=== PATIENT | female | born 1960 | race Caucasian/White ===

== ENCOUNTER 2019-01-10 11:25 | Observation (INO) ==
--- NOTE | 2019-01-10 11:53 | Emergency Department Note ---
Disposition Clinical Impression: Low back pain, Hip pain, History of fall Disposition: Home, Self-Care Condition: Good Time of Disposition: 12:24 General Adult HPI - General Stated complaint: fall Time Seen by Provider: 01/10/19 11:35 Source: patient, family Mode of arrival: EMS Limitations: no limitations Nursing Notes Reviewed: Yes Vital Signs Reviewed: Yes - History of Present Illness HPI Narrative: Patient has been having increasing difficulty moving her feet and when she was walking today she fell tripping over her feet. She complains of low back pain and pain in her left hip. She denies any upper extremity injury, head, neck or chest pain. Patient has history of metastatic small cell cancer and is currently on hospice Onset (ago): Just [employer] Location: back, left, lower extremity Radiation: non-radiation Pain Severity: mild Quality: aching Consistency: constant Improves with: nothing Worsens with: nothing Associated symptoms: Reports: denies other symptoms - Related Data Home Medications Medication Instructions Recorded Confirmed LevETIRAcetam [Keppra] 1,000 mg PO BID 10/10/17 01/10/19 FentaNYL PATCH [Duragesic] 75 mcg TD Q72H 12/30/18 01/10/19 Sennosides/Docusate Sodium 1 each PO BID 12/30/18 01/10/19 [Senna-S Tablet] Polyethylene Glycol 3350 [MiraLAX] 17 gm PO DAILY PRN 01/10/19 01/10/19 Previous Rx's Medication Instructions Recorded Magic Mouthwash [Magic Mouthwash 10 ml PO QID PRN #240 ml 06/22/16 BLM] Magnesium Oxide [Magnesium] 1 tab PO BID #60 tablet 12/12/17 Docusate Sodium [Colace] 1 tab PO BID #60 capsule 12/20/17 Ondansetron HCl [Zofran] 4 mg PO Q4H PRN #30 tablet 08/01/18 Prochlorperazine Maleate 10 mg PO Q6H PRN #30 tablet 08/01/18 [Compazine] Omeprazole 20 mg PO DAILY #30 tablet. 08/29/18 Loperamide [Imodium] 1 tab PO Q6H PRN #30 capsule 10/01/18 Docusate [Colace] 100 mg PO BID #60 capsule 10/29/18 Levothyroxine [Synthroid] 1 tab PO DAILY #30 tablet 11/13/18 Cyanocobalamin (Vitamin B-12) 1,000 mcg SL DAILY #30 tab 11/14/18 [Vitamin B12] Folic Acid 1 mg PO DAILY #30 tablet 11/14/18 Oxycodone HCl 1 tab PO Q6H PRN 30 Days #120 12/05/18 tablet Allergies Allergy/AdvReac Type Severity Reaction Status Date / Time morphine AdvReac Nausea Verified 01/10/19 11:36 All systems ED: reviewed and negative except as stated. Review of Systems: As Per HPI Constitutional: Denies: fever, chills, weakness, weight change Eyes: Denies: eye pain, eye discharge, vision change ENT ED: Denies: ear pain, throat pain, dental pain, hearing loss, epistaxis, congestion, dysphagia Cardiovascular: Denies: chest pain, palpitations, dyspnea on exertion, edema, syncope Respiratory: Denies: cough, dyspnea, wheezes, hemoptysis, stridor Gastrointestinal: Denies: abdominal pain, nausea, vomiting, diarrhea, constipation, hematemesis, melena, hematochezia Genitourinary: Denies: dysuria, frequency, hematuria, discharge Musculoskeletal: Reports: as per HPI (Left hip), back pain Integumentary: Denies: rash, abrasion, lesions Neurological: Denies: headache, weakness, numbness, paresthesias, confusion, abnormal gait, vertigo Psychiatric: Denies: anxiety, depression, suicidal thoughts, homicidal thoughts, auditory hallucinations, visual hallucinations Endocrine: Denies: fatigue Hematological/Lymphatic: Denies: easy bleeding, easy bruising Allergic/Immunologic: Denies: facial swelling, urticaria Past Medical History - Past Medical History Attestation: Yes The following information was validated with the patient. Source: patient, nursing notes reviewed Medical history: Reports: cancer, diabetes Surgical history: Reports: other Psychiatric history: Reports: no psych history - Social History Smoking Status: Current every day smoker Smokeless Tobacco Status: No Alcohol use: Reports: none Drug use: Reports: none Physical Exam - General Limitations: no limitations General appearance: alert, in no apparent distress - Head Head exam: atraumatic, normocephalic, normal inspection - Eye Eye exam: Present: normal appearance, PERRL, EOMI - ENT ENT exam: normal exam, normal oropharynx, mucous membranes moist - Neck Neck exam: Present: normal inspection, full ROM, trachea midline - Chest Chest inspection: Present: normal inspection, symmetric chest wall rise - Respiratory Respiratory exam: Present: normal lung sounds bilaterally - Cardiovascular Cardiovascular exam: Present: regular rate, normal rhythm, normal heart sounds - Abdominal Exam Abdominal exam: Present: soft, Non-Tender. Absent: tenderness, distention, guarding, rebound, rigidity - Extremities Exam Extremities exam: Present: tenderness (Mild left lateral hip tenderness with palpation. Pelvis appears stable. There is also low back tenderness in the midline with palpation near L4-L5. There is no palpable abnormalities in this region) - Back Exam Back exam: Present: normal inspection, full ROM. Absent: tenderness - Neurological Exam Neurological exam: Present: alert, oriented X3 - Psychiatric Psychiatric exam: Present: normal affect, normal mood - Skin Skin exam: Present: warm, dry, intact, normal color Course Vital Signs Temperature 98.9 F 01/10/19 11:49 Pulse Rate 103 01/10/19 11:49 Respiratory Rate 20 01/10/19 11:49 Blood Pressure 115/77 01/10/19 11:49 O2 Sat by Pulse Oximetry 95 01/10/19 11:49 Temperature 98.4 F 01/10/19 18:13 Pulse Rate 102 01/10/19 18:13 Respiratory Rate 16 01/10/19 18:13 Blood Pressure 111/72 01/10/19 18:13 O2 Sat by Pulse Oximetry 95 01/10/19 18:13 Oxygen Delivery Oxygen Delivery Room Air Medical Decision Making - MDM Narrative Medical decision making narrative: I reviewed the patient's medication list I advised the patient family of the x-ray findings at the were negative. And the patient started to cry stating that she cannot deal with this anymore. She came in get up at home. They reside of the fact that this point that she is more work than the family can do at home and needs to be placed somewhere or have additional help come in. I called the hospice nurse on the hot line and she has been looking into her problem. The software product manager called back in so that they will work on placing her but that she will need to be admitted here in the hospital in the meantime if she is unable to care for herself at home I discussed case with Dr. Tapia she is not sure how to that the patient or if she should be transferred to [facility] and placed in the palliative care unit care unit. She is waiting to make that decision until she talks the hospice nurse directly. - Radiology Data Radiology results reviewed: Yes I reviewed the patient's radiology results.
[2019-01-10] MEDS ORDERED: *HR* OxyCODONE/APAP 5/325 TABLET PO ONE (15:34)
[2019-01-10] MEDS ORDERED: *HR* OxyCODONE Immed Rel 15 MG TABLET PO PRN (16:49)
[2019-01-10] MEDS ORDERED: Ondansetron ODT 4 MG TAB.RAPDIS PO PRN (16:49)
[2019-01-10] MEDS ORDERED: Magic Mouthwash 10 ML UD Cup PO PRN ×2 (16:49→19:26)
[2019-01-10] MEDS ORDERED: Naloxone 0.4 MG/ML INJ IVP PRN (19:26)
[2019-01-10] MEDS ORDERED: *HR* Dextrose 50 % in Water (Syg) 50 ML SYRINGE IVP PRN (19:51)
[2019-01-10] MEDS ORDERED: Dextrose 4 GM Chewable Tablets PO PRN ×2 (19:51)
[2019-01-10] MEDS ORDERED: Dextrose Gel 15 GM/37.5 ML TUBE PO PRN ×2 (19:51)
[2019-01-10] MEDS ORDERED: D5% in Water 1,000 ML IVC PRN (19:51)
[2019-01-10] MEDS ORDERED: Magnesium Oxide 400 MG TABLET PO SCH (21:00)
[2019-01-10] MEDS ORDERED: Sennosides/Docusate Sodium TABLET PO SCH (21:00)
[2019-01-10] MEDS ORDERED: levETIRAcetam 250 MG TABLET PO SCH (21:00)
[2019-01-10] MEDS: Sennosides/Docusate Sodium TABLET PO SCH (21:11)
[2019-01-10] MEDS: Magnesium Oxide 400 MG TABLET PO SCH (21:11)
[2019-01-10] MEDS: levETIRAcetam 250 MG TABLET PO SCH (21:12)
[2019-01-10] MEDS: Insulin LISPRO 300 UNITS/3 ML VIAL SQ SCH (21:12)
[2019-01-10] MEDS: Ondansetron ODT 4 MG TAB.RAPDIS PO PRN (23:22)
[2019-01-11] MEDS: *HR* OxyCODONE Immed Rel 15 MG TABLET PO PRN ×4 (04:14→22:58)
[2019-01-11] MEDS: Sennosides/Docusate Sodium TABLET PO SCH ×2 (07:55→19:27)
[2019-01-11] MEDS: Insulin LISPRO 300 UNITS/3 ML VIAL SQ SCH ×4 (07:55→20:09)
[2019-01-11] MEDS: Magnesium Oxide 400 MG TABLET PO SCH ×2 (08:03→20:08)
[2019-01-11] MEDS: levETIRAcetam 250 MG TABLET PO SCH ×2 (08:03→20:08)
[2019-01-11] MEDS: Folic Acid 1 MG TABLET PO SCH (08:03)
[2019-01-11] MEDS: Cyanocobalamin (B-12) 1,000 MCG TABLET PO SCH (08:06)
[2019-01-11] MEDS ORDERED: Folic Acid 1 MG TABLET PO SCH (09:00)
[2019-01-11] MEDS ORDERED: Cyanocobalamin (B-12) 1,000 MCG TABLET PO SCH (09:00)
[2019-01-11] MEDS ORDERED: *HR* FentaNYL PATCH 75 MCG PATCH TD SCH (09:00)
--- NOTE | 2019-01-11 13:11 | Internal Med History&Physical ---
Date of Encounter: 01/11/19 Time of Encounter: 14:00 Assessment and Plan (1) Fall Current visit: Yes Status: Acute pt has pain from fall at home xrays neg pain control and monitoring Qualifiers: Encounter type: initial encounter Qualified Code(s): W19.XXXA - Unspecified fall, initial encounter (2) Small cell carcinoma of right lung Current visit: No Status: Chronic Pt diagnosed 2015 has widespread metastasis pt has been in outpt hospice pt does not want tests or acceleration of care pt wants to go into inpt hospice care hospice consulted Internal Medicine - H&P: HPI Chief complaint: fell at home Admitted From: Home History of present illness: Ms. Head is a 58 year old female who has been at home with increasing weakness over the past 3 days. She fell at home onto her floor and has pain in her side. X-ray in the ED was negative for fracture. She is unable to do her own ADL. And reports her pain is severe. Patient has had one cancer diagnosed in 2014. She was a previous smoker but not currently she says. 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 She has had home hospice care but now relates that her symptoms need increased control . Past Med Surg Social Fam HX - Past Medical History Medical history: cancer, diabetes Additional medical history: Insulin controlled Psychiatric history: no psych history - Past Surgical History Surgical History: other Additional surgical history: Brain surgery, port placement - Social History Smoking Status: Current every day smoker Smokeless Tobacco Status: No Alcohol use: none Drug use: none - Family History Mother Living Status: Hx Family Endocrine Disorder: Yes Father Living Status: Hx Family Cardiac Disorders: Yes Brother Hx Family Cancer: Yes (lung cancer) Internal Medicine - H&P: Meds Magic Mouthwash [Magic Mouthwash BLM] 10 ml PO QID PRN #240 ml 06/22/16 [Rx] LevETIRAcetam [Keppra] 1,000 mg PO BID 10/10/17 [History] Magnesium Oxide [Magnesium] 1 tab PO BID #60 tablet 12/12/17 [Rx] Docusate Sodium [Colace] 1 tab PO BID #60 capsule 12/20/17 [Rx] Ondansetron HCl [Zofran] 4 mg PO Q4H PRN #30 tablet 08/01/18 [Rx] Prochlorperazine Maleate [Compazine] 10 mg PO Q6H PRN #30 tablet 08/01/18 [Rx] Omeprazole 20 mg PO DAILY #30 tablet. 08/29/18 [Rx] Loperamide [Imodium] 1 tab PO Q6H PRN #30 capsule 10/01/18 [Rx] Docusate [Colace] 100 mg PO BID #60 capsule 10/29/18 [Rx] Levothyroxine [Synthroid] 1 tab PO DAILY #30 tablet 11/13/18 [Rx] Cyanocobalamin (Vitamin B-12) [Vitamin B12] 1,000 mcg SL DAILY #30 tab 11/14/18 [Rx] Folic Acid 1 mg PO DAILY #30 tablet 11/14/18 [Rx] Oxycodone HCl 1 tab PO Q6H PRN 30 Days #120 tablet 12/05/18 [Rx] FentaNYL PATCH [Duragesic] 75 mcg TD Q72H 12/30/18 [History] Sennosides/Docusate Sodium [Senna-S Tablet] 1 each PO BID 12/30/18 [History] Polyethylene Glycol 3350 [MiraLAX] 17 gm PO DAILY PRN 01/10/19 [History] Allergy/AdvReac Type Severity Reaction Status Date / Time morphine AdvReac Nausea Verified 01/10/19 11:36 All Systems PM: A 10-system review of systems was performed and is negative for pertinent findings except as documented above in the HPI. - Constitutional Vitals: Temp Pulse Resp BP Pulse Ox 98.1 F 108 16 122/77 93 01/11/19 12:25 01/11/19 12:25 01/11/19 12:25 01/11/19 12:25 01/11/19 12:25 Exam: Physical Exam - General Limitations: cannot lift herself out of bed or sit up by self falls General appearance: alert, anxious mod distress WF - Head Head exam: atraumatic, normocephalic - Eye Eye exam: Present: normal appearance, PERRLA - ENT ENT exam: normal exam, normal oropharynx, mucous membranes dry - Neck Neck exam: Present: normal inspection, full ROM, trachea midline - Chest Chest inspection: Present: normal inspection, symmetric chest wall rise - Respiratory Respiratory exam: Present: fairl lung sounds bilaterally some musical wheezes both bases - Cardiovascular Cardiovascular exam: Present: regular rate, normal rhythm, normal heart sounds - Abdominal Exam Abdominal exam: Present: soft, Non-Tender. full and mild distended Absent: tenderness, guarding, rebound, rigidity - Extremities Exam Extremities exam: Present: tenderness (Mild left lateral hip tenderness with palpation. Pelvis appears stable. There is also low back tenderness in the midline with palpation near L4-L5. There is no palpable abnormalities in this region) - Neurological Exam Neurological exam: Present: alert, oriented X3 no acute gross deficits - Psychiatric Psychiatric exam: Present: flat affect, normal mood - Skin Skin exam: Present: warm, dry, intact, no laceration Medical Decision Making - [facility] Narrative Medical decision making narrative: I reviewed the patient's medication list I advised the patient family Physical Exam - General Limitations: no limitations General appearance: alert, in no apparent distress - Head Head exam: atraumatic, normocephalic, normal inspection - Eye Eye exam: Present: normal appearance, PERRL, EOMI - ENT ENT exam: normal exam, normal oropharynx, mucous membranes moist - Neck Neck exam: Present: normal inspection, full ROM, trachea midline - Chest Chest inspection: Present: normal inspection, symmetric chest wall rise - Respiratory Respiratory exam: Present: normal lung sounds bilaterally - Cardiovascular Cardiovascular exam: Present: regular rate, normal rhythm, normal heart sounds - Abdominal Exam Abdominal exam: Present: soft, Non-Tender. Absent: tenderness, distention, guarding, rebound, rigidity - Extremities Exam Extremities exam: Present: tenderness (Mild left lateral hip tenderness with palpation. Pelvis appears stable. There is also low back tenderness in the midline with palpation near L4-L5. There is no palpable abnormalities in this region) - Back Exam Back exam: Present: normal inspection, full ROM. Absent: tenderness - Neurological Exam Neurological exam: Present: alert, oriented X3 - Psychiatric Psychiatric exam: Present: normal affect, normal mood - Skin Skin exam: Present: warm, dry, intact, normal color Internal Med - H&P Results - Impressions ITS Impressions Hip X-Ray 01/10/19 11:48 IMPRESSION: 1. Multilevel lumbar spine degenerative changes with severe L4/L5 degenerative joint disease and grade 1 anterolisthesis. This is stable compared to a prior lumbar spine radiograph 07/29/2018. 2. Normal pelvic alignment with no acute left hip fracture. D/ / 01/10/2019 13:01:20 Hany Philip MD / devika Interpreting Provider: Hany Philip MD Lumbar Spine X-Ray 01/10/19 11:48
[2019-01-11] MEDS: Ondansetron ODT 4 MG TAB.RAPDIS PO PRN (16:05)
[2019-01-12] MEDS: *HR* OxyCODONE Immed Rel 15 MG TABLET PO PRN ×3 (05:12→16:35)
[2019-01-12] MEDS: Insulin LISPRO 300 UNITS/3 ML VIAL SQ SCH ×2 (08:12→11:57)
[2019-01-12] MEDS: levETIRAcetam 250 MG TABLET PO SCH (08:14)
[2019-01-12] MEDS: Folic Acid 1 MG TABLET PO SCH (08:14)
[2019-01-12] MEDS: Magnesium Oxide 400 MG TABLET PO SCH (08:14)
[2019-01-12] MEDS: Sennosides/Docusate Sodium TABLET PO SCH (08:14)
[2019-01-12] MEDS: Cyanocobalamin (B-12) 1,000 MCG TABLET PO SCH (08:14)
--- NOTE | 2019-01-12 11:21 | Internal Med Progress Note ---
Date of Encounter: 01/12/19 Time of Encounter: 11:15 - Assessment and plan (1) Metastatic lung cancer (metastasis from lung to other site) Current Visit: Yes Status: Chronic Assessment and plan: f/u with oncology as scheduled. continue supportive care. Qualifiers: Laterality: unspecified laterality Qualified Code(s): C34.90 - Malignant neoplasm of unspecified part of unspecified bronchus or lung (2) Fall Current Visit: Yes Status: Acute Assessment and plan: fell at home, continues to c/o mid back pain. Qualifiers: Encounter type: sequela Qualified Code(s): W19.XXXS - Unspecified fall, sequela (3) Type 2 diabetes mellitus Current Visit: Yes Status: Chronic Assessment and plan: controlled with sliding scale insulin. monitor FSBS. will adjust as necessary. Qualifiers: Diabetes mellitus intermodal dispatcher insulin use: with shelter use Diabetes mellitus complication status: with unspecified complications Qualified Code(s): E11.8 - Type 2 diabetes mellitus with unspecified complications; Z79.4 - snf (current) use of insulin - Time Spent With Patient less than 15 minutes - Subjective Interval history: pt resting in bed. states she continues to have mid back pain. has had this same pain since falling at home. on a fentantyl patch. maintaining appetite and hydration. - Constitutional Vitals: Temp Pulse Resp BP Pulse Ox 98.6 F 104 16 118/76 96 01/12/19 07:45 01/12/19 07:45 01/12/19 07:45 01/12/19 07:45 01/12/19 07:45 General appearance: Present: cooperative, A&O X 3, pleasant, no acute distress, answers questions appropriately - Head Head exam: Present: atraumatic, normocephalic - Eye Eye exam: Present: PERRL, conjuntiva pink, sclera anicteric Pupils: Present: PERRL - Neck Neck exam general surgery: Present: supple, trachea midline. Absent: lymphadenopathy - Respiratory Respiratory exam: Present: CTAB. Absent: accessory muscle use, rales, rhonchi, wheezes Additional comments: congested cough. diminishe lung bases. - Cardiovascular Cardiovascular exam: Present: RRR, +S1, +S2. Absent: diastolic murmur, gallop, rubs, systolic murmur - GI/Abdominal GI/Abdominal exam: Present: normal bowel sounds, soft, no peritoneal signs. Absent: distended, tenderness - Extremities Exam Extremities exam: Present: warm, radial pulses palpable and symmetrical. Absent: calf tenderness, cyanotic, pedal edema - Neurological Exam Neurological exam: Present: CN II-XII intact, oriented X3, no focal deficits. Absent: pronater drift, facial droop, speech deficit - Skin Skin exam: Present: dry, intact Consult Discharge Plan - Plan
[2019-01-12 11:49] VITALS: BP 114/75
--- NOTE | 2019-01-12 12:40 | Discharge Summary ---
Date of Encounter: 01/12/19 Time of Encounter: 12:38 - Discharge Diagnosis (1) Metastatic lung cancer (metastasis from lung to other site) Priority: Primary Status: Chronic Comments: continue hospice and supportive care. Qualifiers: Laterality: unspecified laterality Qualified Code(s): C34.90 - Malignant neoplasm of unspecified part of unspecified bronchus or lung (2) Fall Priority: Primary Status: Acute Comments: assist with ADL's. Qualifiers: Encounter type: sequela Qualified Code(s): W19.XXXS - Unspecified fall, sequela (3) Type 2 diabetes mellitus Priority: Secondary Status: Chronic Comments: continue current meds. monitor FSBS. Qualifiers: Diabetes mellitus manager intermediate insulin use: with manager intermediate use Diabetes mellitus complication status: with unspecified complications Qualified Code(s): E11.8 - Type 2 diabetes mellitus with unspecified complications; Z79.4 - salvage determiner (current) use of insulin Hospital course: Ms. Head is a 58 year old female discharging to home with hopsice and . hospice to bring equipment today. Discharge discussed with: patient, family, nurse, social work - Time Spent with Patient Total time spent providing and/or coordinating discharge services: Time spent: Less than 30 minutes - Discharge Medications Prescriptions: No Action Magic Mouthwash [Magic Mouthwash BLM] 10 ml PO QID PRN #240 ml PRN Reason: Sore Throat LevETIRAcetam [Keppra] 1,000 mg PO BID Magnesium Oxide [Magnesium] 1 tab PO BID #60 tablet Docusate Sodium [Colace] 1 tab PO BID #60 capsule Ondansetron HCl [Zofran] 4 mg PO Q4H PRN #30 tablet PRN Reason: Nausea Prochlorperazine Maleate [Compazine] 10 mg PO Q6H PRN #30 tablet PRN Reason: Nausea Omeprazole 20 mg PO DAILY #30 tablet. Loperamide [Imodium] 1 tab PO Q6H PRN #30 capsule PRN Reason: Diarrhea Docusate [Colace] 100 mg PO BID #60 capsule Levothyroxine [Synthroid] 1 tab PO DAILY #30 tablet Cyanocobalamin (Vitamin B-12) [Vitamin B12] 1,000 mcg SL DAILY #30 tab Folic Acid 1 mg PO DAILY #30 tablet Oxycodone HCl 1 tab PO Q6H PRN 30 Days #120 tablet PRN Reason: Pain FentaNYL PATCH [Duragesic] 75 mcg TD Q72H Sennosides/Docusate Sodium [Senna-S Tablet] 1 each PO BID Polyethylene Glycol 3350 [MiraLAX] 17 gm PO DAILY PRN PRN Reason: Constipation Home Medications: Magic Mouthwash [Magic Mouthwash BLM] 10 ml PO QID PRN #240 ml 06/22/16 [Rx] LevETIRAcetam [Keppra] 1,000 mg PO BID 10/10/17 [History] Magnesium Oxide [Magnesium] 1 tab PO BID #60 tablet 12/12/17 [Rx] Docusate Sodium [Colace] 1 tab PO BID #60 capsule 12/20/17 [Rx] Ondansetron HCl [Zofran] 4 mg PO Q4H PRN #30 tablet 08/01/18 [Rx] Prochlorperazine Maleate [Compazine] 10 mg PO Q6H PRN #30 tablet 08/01/18 [Rx] Omeprazole 20 mg PO DAILY #30 tablet.dr 08/29/18 [Rx] Loperamide [Imodium] 1 tab PO Q6H PRN #30 capsule 10/01/18 [Rx] Docusate [Colace] 100 mg PO BID #60 capsule 10/29/18 [Rx] Levothyroxine [Synthroid] 1 tab PO DAILY #30 tablet 11/13/18 [Rx] Cyanocobalamin (Vitamin B-12) [Vitamin B12] 1,000 mcg SL DAILY #30 tab 11/14/18 [Rx] Folic Acid 1 mg PO DAILY #30 tablet 11/14/18 [Rx] Oxycodone HCl 1 tab PO Q6H PRN 30 Days #120 tablet 12/05/18 [Rx] FentaNYL PATCH [Duragesic] 75 mcg TD Q72H 12/30/18 [History] Sennosides/Docusate Sodium [Senna-S Tablet] 1 each PO BID 12/30/18 [History] Polyethylene Glycol 3350 [MiraLAX] 17 gm PO DAILY PRN 01/10/19 [History] Allergies/Adverse Reactions: Allergy/AdvReac Type Severity Reaction Status Date / Time morphine AdvReac Nausea Verified 01/10/19 11:36 Date of admission: 01/10/19 17:08 Primary care physician: Jayesh Centeno Consults: 01/10/19 17:57 Consult to Nutrition [CONS] Routine Comment: Consulting Provider: NUTRITION Reason for Dietary Consult: PO Supplementation Consult to Raw Material Planner [CONS] Routine Reason for SW Consult: inpatient hospice placement Discharging clinician: Reba Tapia Anticipated date of discharge: 01/12/19 - Constitutional Vitals: see exam on progress note dated on this date. Temp Pulse Resp BP Pulse Ox 97.9 F 105 15 114/75 93 01/12/19 11:48 01/12/19 11:48 01/12/19 11:48 01/12/19 11:48 01/12/19 11:48 General appearance: Present: cooperative, A&O X 3, pleasant, no acute distress, answers questions appropriately - Patient Status Disposition: Home, Self-Care Condition: Fair Functional capacity at discharge: uses cane/walker Overall status at discharge: patient is progressing back to baseline - Discharge Instructions Follow Up With: Evie Zheng DO [Primary Care Provider] - Forms: ED Satisfaction Letter - Diet and Activity Activity: ambulate only with your walker Diet: diabetic diet
--- NOTE | 2019-01-12 13:21 | Physician Discharge Referral ---
ExtendedCare Referral Info Transfer To: [facility] and Care Provider in Charge after Transfer: PCP Institutional Level of Care: Intermediate - Diagnosis (1) Metastatic lung cancer (metastasis from lung to other site) Priority: Primary Status: Chronic (2) Fall Priority: Primary Status: Acute (3) Type 2 diabetes mellitus Priority: Secondary Status: Chronic Prognosis: Fair Aware of Diagnosis: Patient, Family Aware of Prognosis: Patient, Family - Transfer Medications Home Medications: Magic Mouthwash [Magic Mouthwash BLM] 10 ml PO QID PRN #240 ml 06/22/16 [Rx] LevETIRAcetam [Keppra] 1,000 mg PO BID 10/10/17 [History] Magnesium Oxide [Magnesium] 1 tab PO BID #60 tablet 12/12/17 [Rx] Docusate Sodium [Colace] 1 tab PO BID #60 capsule 12/20/17 [Rx] Ondansetron HCl [Zofran] 4 mg PO Q4H PRN #30 tablet 08/01/18 [Rx] Prochlorperazine Maleate [Compazine] 10 mg PO Q6H PRN #30 tablet 08/01/18 [Rx] Omeprazole 20 mg PO DAILY #30 tablet. 08/29/18 [Rx] Loperamide [Imodium] 1 tab PO Q6H PRN #30 capsule 10/01/18 [Rx] Docusate [Colace] 100 mg PO BID #60 capsule 10/29/18 [Rx] Levothyroxine [Synthroid] 1 tab PO DAILY #30 tablet 11/13/18 [Rx] Cyanocobalamin (Vitamin B-12) [Vitamin B12] 1,000 mcg SL DAILY #30 tab 11/14/18 [Rx] Folic Acid 1 mg PO DAILY #30 tablet 11/14/18 [Rx] Oxycodone HCl 1 tab PO Q6H PRN 30 Days #120 tablet 12/05/18 [Rx] FentaNYL PATCH [Duragesic] 75 mcg TD Q72H 12/30/18 [History] Sennosides/Docusate Sodium [Senna-S Tablet] 1 each PO BID 12/30/18 [History] Polyethylene Glycol 3350 [MiraLAX] 17 gm PO DAILY PRN 01/10/19 [History] Allergies/Adverse Reactions: Allergy/AdvReac Type Severity Reaction Status Date / Time morphine AdvReac Nausea Verified 01/10/19 11:36 - Respiratory Orders Smoking Cessation: Smoking cessation has been advised. For more information, call the [place] Tobacco Quit Line at [phone]-NOW. - Advance Directives Code Status: DNR-Arrest - Mobility Orders Ambulate - Diet Orders No Concentrated Sweets CERTIFICATION: I certify that the transfer of the above named patient to an Extended Care Facility is necessary for the continuing treatment of the diagnosis listed. The above information is true and accurate reflection of patient's current condition. Confidential - Redisclosure prohibited without a patient's written consent.
== END 2019-01-12 16:51 | disposition home or self-care (01) ==
LOC: EMEROOGRE 11:25 → INPGRE 11:25
PROVIDERS: ADMIT Internal Medicine; ATTEND Internal Medicine